=== PATIENT | male | born 1945 | race Caucasian/White ===

== ENCOUNTER 2023-05-07 12:01 | Day surgery (SDC) | payer OTHER ==
[~2023-05-07] VITALS: Ht 188 cm; Wt 106.1 kg
[~2023-05-07 12:01] MED LIST: Aspir 8181 MG PO; HYDCHL25; JARDIANCE25 MG PO; LOSA25 PO; MELATONIN5 M1 PO; ZOCOR20 MG PO
--- NOTE | 2023-05-07 12:56 | NUR ---
05/07/23 1256 Deb Tinoco TETRACAINE DROP TO THE L EYE AT 1250, PLEDGET PLACE AT 1252
[2023-05-07 14:06] VITALS: BP 142/68
--- NOTE | 2023-05-07 14:43 | NUR ---
05/07/23 1443 Gaurav Garcia IV REMOVED INTACT. SITE WNL.
== END 2023-05-07 14:19 | disposition home or self-care (01) ==
LOC: ORSCSDS 12:01
PROVIDERS: Ophthalmology
PROC: 08DK3ZZ Extraction of Left Lens, Percutaneous Approach (ICD-10-PCS; principal; 2023-05-07 14:00)
DX: E11.36 Type 2 diabetes mellitus with diabetic cataract (principal); H25.12 Age-related nuclear cataract, left eye; Z96.1 Presence of intraocular lens; I12.9 Hypertensive chronic kidney disease with stage 1 through stage 4 chronic kidney disease, or unspecified chronic kidney disease; E11.22 Type 2 diabetes mellitus with diabetic chronic kidney disease; N18.9 Chronic kidney disease, unspecified; E11.40 Type 2 diabetes mellitus with diabetic neuropathy, unspecified; E03.9 Hypothyroidism, unspecified; H40.9 Unspecified glaucoma; E78.5 Hyperlipidemia, unspecified; M48.00 Spinal stenosis, site unspecified; I73.9 Peripheral vascular disease, unspecified; E66.9 Obesity, unspecified; Z68.30 Body mass index [BMI] 30.0-30.9, adult; Z79.82 Long term (current) use of aspirin; Z79.899 Other long term (current) drug therapy
CPT/HCPCS: 82947; J2001; J2250; J3010; J3301; J7040; V2632